=== PATIENT | male | born 1970 | race American Indian/Alaskan Native ===

== ENCOUNTER 2017-06-06 18:00 | Inpatient (IN) | payer BC, OTHER ==
[2017-06-06] MEDS ORDERED: NACL 0.9% 1000 ML 1,000 ML IV ONE (18:31)
[2017-06-06] MEDS ORDERED: BABY ASPIRIN PO ONE (18:31)
[2017-06-06] MEDS ORDERED: PLAVIX PO ONE (18:31)
[2017-06-06] MEDS ORDERED: MORPHINE IV ONE (18:32)
--- NOTE | 2017-06-06 18:35 | Emergency Department Report ---
ED Chest Pain HPI - General Chief Complaint: Chest Pain Stated Complaint: CHEST PAIN Time Seen by Provider: 06/06/17 18:30 Source: patient Mode of arrival: Ambulatory Limitations: No Limitations - History of Present Illness Initial Comments: She has a 46-year-old male past history of TIA, hypertension and von hippel lindau. Presents with chest pain. Chest pain has been going on since yesterday but it has gotten progressively more severe. Patient states the chest pain is located left side of his chest since a 10 out of 10 is an achy type of pain it's a pressure pain that radiates throughout his chest. Patient states that he's never had chest hematocrit is 44. Patient states that he slightly short of breath and nauseous. Patient was just resting when this pain occurred. - Related Data Home Medications Medication Instructions Recorded Confirmed Last Taken Lisinopril [Zestril TAB] 40 mg PO QDAY 06/01/14 06/01/14 Unknown metFORMIN [Glucophage] 500 mg PO BID 06/01/14 06/01/14 Unknown Previous Rx's Medication Instructions Recorded Last Taken Type levETIRAcetam [Keppra TAB] 500 mg PO BID #60 tablet 06/02/14 Unknown Rx Allergies Allergy/AdvReac Type Severity Reaction Status Date / Time No Known Allergies Allergy Verified 06/01/14 05:13 Heart Score - HEART Score History: Highly suspicious EKG: Significant ST-depression Age: < 45 Risk factors: > 3 risk factors or hx of atherosclerotic disease Troponin: 1-3x normal limit HEART Score: 7 ED Review of Systems ROS: Stated complaint: CHEST PAIN Other details as noted in HPI Constitutional: denies: chills, fever Eyes: denies: eye pain, eye discharge, vision change ENT: denies: ear pain, throat pain Respiratory: SOB at rest. denies: cough, shortness of breath, wheezing Cardiovascular: chest pain. denies: palpitations Endocrine: no symptoms reported Gastrointestinal: denies: abdominal pain, nausea, diarrhea Genitourinary: denies: urgency, dysuria Musculoskeletal: denies: back pain, joint swelling, arthralgia Skin: denies: rash, lesions Neurological: denies: headache, weakness, paresthesias Psychiatric: denies: anxiety, depression Hematological/Lymphatic: denies: easy bleeding, easy bruising ED Past Medical Hx - Past Medical History Hx Hypertension: Yes Hx Congestive Heart Failure: No Hx Diabetes: Yes Hx Seizures: Yes Hx Asthma: No Hx COPD: No Hx HIV: No Additional medical history: Hx TIA. VON HIPPEL-LINDAU DISEASE (cerebral hemangiomas) - Surgical History Past Surgical History?: No - Social History Smoking Status: Never Smoker Substance Use Type: None - Medications Home Medications: Home Medications Medication Instructions Recorded Confirmed Last Taken Type Lisinopril [Zestril TAB] 40 mg PO QDAY 06/01/14 06/01/14 Unknown History metFORMIN [Glucophage] 500 mg PO BID 06/01/14 06/01/14 Unknown History levETIRAcetam [Keppra TAB] 500 mg PO BID #60 tablet 06/02/14 Unknown Rx ED Physical Exam - General Limitations: No Limitations General appearance: alert, in no apparent distress - Head Head exam: Present: atraumatic, normocephalic - Eye Eye exam: Present: normal appearance - ENT ENT exam: Present: mucous membranes moist - Neck Neck exam: Present: normal inspection - Respiratory Respiratory exam: Present: normal lung sounds bilaterally. Absent: respiratory distress - Cardiovascular Cardiovascular Exam: Present: normal rhythm, tachycardia. Absent: systolic murmur, diastolic murmur, rubs, gallop - GI/Abdominal GI/Abdominal exam: Present: soft, normal bowel sounds - Rectal Rectal exam: Present: deferred - Extremities Exam Extremities exam: Present: normal inspection - Back Exam Back exam: Present: normal inspection - Neurological Exam Neurological exam: Present: alert, oriented X3 - Psychiatric Psychiatric exam: Present: normal affect, normal mood - Skin Skin exam: Present: warm, dry, intact, normal color. Absent: rash ED Course Vital Signs 06/06/17 06/06/17 06/06/17 18:23 18:30 18:44 Temperature 97 F L Pulse Rate 120 H Respiratory 24 18 Rate Blood Pressure 164/110 O2 Sat by Pulse 97 Oximetry - Consultations Consultation #1: 06/07/17 01:43 Consulted with director hospice operations Dr. Nix patient has EKG that's highly concerning for right sided STEMI. Patient will be sent to [facility] station [facility]. MARY score - Mary Score Age > 65: (0) No Aspirin use within the Past 7 Days: (0) No 3 or more CAD Risk Factors: (0) No 2 or more Angina events in past 24 hrs: (0) No Known CAD with more than 50% Stenosis: (0) No Elevated Cardiac Markers: (1) Yes ST Deviation Greater than 0.5mm: (1) Yes MARY Score: 2 ED Medical Decision Making - Lab Data Result diagrams: 06/06/17 18:32 06/06/17 18:32 Lab Results 06/06/17 06/06/17 06/06/17 Range/Units 18:32 18:32 18:32 WBC 12.7 H (4.5-11.0) K/mm3 RBC 5.88 H (3.65-5.03) M/mm3 Hgb 14.0 (11.8-15.2) gm/dl Hct 44.5 (35.5-45.6) % MCV 76 L (84-94) fl MCH 24 L (28-32) pg MCHC 31 L (32-34) % RDW 16.3 H (13.2-15.2) % Plt Count 259 (140-440) K/mm3 Lymph % (Auto) 12.2 L (13.4-35.0) % [place] % (Auto) 11.8 H (0.0-7.3) % Eos % (Auto) 0.3 (0.0-4.3) % Baso % (Auto) 0.6 (0.0-1.8) % Lymph # 1.5 (1.2-5.4) K/mm3 [place] # 1.5 H (0.0-0.8) K/mm3 Eos # 0.0 (0.0-0.4) K/mm3 Baso # 0.1 (0.0-0.1) K/mm3 Seg Neutrophils % 75.1 H (40.0-70.0) % Seg Neutrophils # 9.6 H (1.8-7.7) K/mm3 PT 15.6 H (12.2-14.9) Sec. INR 1.25 H (0.87-1.13) APTT 30.3 (24.2-36.6) Sec. Sodium 138 (137-145) mmol/L Potassium 3.5 L (3.6-5.0) mmol/L Chloride 95.4 L (98-107) mmol/L Carbon Dioxide 27 (22-30) mmol/L Anion Gap 19 mmol/L BUN 6 L (9-20) mg/dL Creatinine 0.6 L (0.8-1.5) mg/dL Estimated GFR > 60 ml/min BUN/Creatinine Ratio 10.00 % Glucose 227 H (75-100) mg/dL POC Glucose (70-105) Calcium 9.5 (8.4-10.2) mg/dL Total Creatine Kinase 768 H (55-170) units/L CK-MB (CK-2) 12.5 H (0.0-4.0) ng/mL CK-MB (CK-2) Rel Index 1.6 (0-4) Troponin T 1.760 H* (0.00-0.029) ng/mL Triglycerides 97 (2-149) mg/dL Cholesterol 233 H (50-199) mg/dL LDL Cholesterol Direct 139 H (50-130) mg/dL HDL Cholesterol 75 H (40-59) mg/dL Cholesterol/HDL Ratio 3.10 % Blood Type Antibody Screen 06/06/17 06/06/17 Range/Units 18:32 21:31 WBC (4.5-11.0) K/mm3 RBC (3.65-5.03) M/mm3 Hgb (11.8-15.2) gm/dl Hct (35.5-45.6) % MCV (84-94) fl MCH (28-32) pg MCHC (32-34) % RDW (13.2-15.2) % Plt Count (140-440) K/mm3 Lymph % (Auto) (13.4-35.0) % [place] % (Auto) (0.0-7.3) % Eos % (Auto) (0.0-4.3) % Baso % (Auto) (0.0-1.8) % Lymph # (1.2-5.4) K/mm3 [place] # (0.0-0.8) K/mm3 Eos # (0.0-0.4) K/mm3 Baso # (0.0-0.1) K/mm3 Seg Neutrophils % (40.0-70.0) % Seg Neutrophils # (1.8-7.7) K/mm3 PT (12.2-14.9) Sec. INR (0.87-1.13) APTT (24.2-36.6) Sec. Sodium (137-145) mmol/L Potassium (3.6-5.0) mmol/L Chloride (98-107) mmol/L Carbon Dioxide (22-30) mmol/L Anion Gap mmol/L BUN (9-20) mg/dL Creatinine (0.8-1.5) mg/dL Estimated GFR ml/min BUN/Creatinine Ratio % Glucose (75-100) mg/dL POC Glucose 254 H (70-105) Calcium (8.4-10.2) mg/dL Total Creatine Kinase (55-170) units/L CK-MB (CK-2) (0.0-4.0) ng/mL CK-MB (CK-2) Rel Index (0-4) Troponin T (0.00-0.029) ng/mL Triglycerides (2-149) mg/dL Cholesterol (50-199) mg/dL LDL Cholesterol Direct (50-130) mg/dL HDL Cholesterol (40-59) mg/dL Cholesterol/HDL Ratio % Blood Type B POSITIVE Antibody Screen Negative - EKG Data -: EKG Interpreted by Pa - EKG Data 06/07/17 01:38 EKG shows sinus tachycardia normal axis. ST segment elevations in aVR and in leads 2,3 and V5 and V6. Consistent with right coronary STEMI. - Medical Decision Making Medical diagnosis: STEMI Differential diagnosis non-STEMI, unstable angina, costochondritis CBC, CMP, troponin, EKG, aspirin, Plavix, IV heparin and an original cardiology consult Patient has a right-sided STEMI based on EKG I will talk to control clerk auditing Dr. Nix and he agrees to take the patient to the [facility]. Discussed plan with the patient he agrees to go to the filling station lab[facility]. Patient has received aspirin and Plavix. Critical Care Time: Yes Critical care time in (mins) excluding proc time.: 25 Critical care attestation.: If time is entered above; I have spent that time in minutes in the direct care of this critically ill patient, excluding procedure time. Critical care time spent with consulted 5 minutes Critical care time spent at patient's bedside 15 minutes Critical care time spent reviewing old records 5 minutes ED Disposition Clinical Impression: STEMI (ST elevation myocardial infarction) Qualifiers: Involved coronary artery: right coronary artery Qualified Code(s): I21.11 - ST elevation (STEMI) myocardial infarction involving right coronary artery Chest pain due to myocardial ischemia Qualifiers: Ischemic chest pain type: unstable angina pectoris Qualified Code(s): I20.0 - Unstable angina Disposition: DC-09 OP ADMIT IP TO THIS HOSP Is pt being admited?: Yes Does the pt Need Aspirin: Yes Condition: Stable
[2017-06-06] MEDS ORDERED: HEPARIN 10,000 UNITS/10 ML ONE ×2 (18:41→18:46)
[2017-06-06] MEDS: HEPARIN 10,000 UNITS/10 ML IV ONE (18:42)
[2017-06-06] MEDS ORDERED: HEPARIN/NS 5000 UNIT/500ML(CATH LAB) 1,000 ML IR ONE (18:45)
[2017-06-06] MEDS ORDERED: XYLOCAINE 2% INFILTRATI ONE (18:46)
[2017-06-06] MEDS ORDERED: CALAN ONE (18:46)
[2017-06-06] MEDS ORDERED: NITROGLYCERIN SYRINGE 3 ML ONE ×2 (18:46→19:45)
[2017-06-06] MEDS ORDERED: HEPARIN/ 0.45% NACL-25,000 UNIT/500 ML 25,000 UNIT/500 ML BAG IV SCH (19:00)
[2017-06-06 19:02] LABS: Basophils % (Auto) 0.6 % (0.0-1.8); Eosinophils % (Auto) 0.3 % (0.0-4.3); Hematocrit 44.5 % (35.5-45.6); Mean Corpuscular HGB Conc 31 % (32-34); Mean Corpuscular Volume 76 fl (84-94); Platelet Count 259 K/mm3 (140-440); Red Blood Count 5.88 M/mm3 (3.65-5.03); Red Cell Distribution Width 16.3 % (13.2-15.2); White Blood Count 12.7 K/mm3 (4.5-11.0)
[2017-06-06 19:04] LABS: Mean Corpuscular Hemoglobin 24 pg (28-32)
[2017-06-06 19:12] LABS: INR 1.25 (0.87-1.13); Partial Thromboplastin Time 30.3 Sec. (24.2-36.6)
[2017-06-06 19:23] LABS: Creatine Kinase MB 12.5 ng/mL (0.0-4.0)
[2017-06-06 19:24] LABS: Anion Gap 19 mmol/L; Blood Urea Nitrogen 6 mg/dL (9-20); Calcium 9.5 mg/dL (8.4-10.2); Carbon Dioxide 27 mmol/L (22-30); Chloride 95.4 mmol/L (98-107); Creatine Kinase 768 units/L (55-170); Glucose 227 mg/dL (75-100); Potassium 3.5 mmol/L (3.6-5.0); Sodium 138 mmol/L (137-145)
[2017-06-06] MEDS ORDERED: VERSED ONE (19:24)
[2017-06-06] MEDS ORDERED: SUBLIMAZE ONE (19:24)
[2017-06-06] MEDS ORDERED: TRIDIL DRIP 50MG/250ML 50 MG/250 ML BOTTLE ONE (19:29)
[2017-06-06 19:43] LABS: Cholesterol 233 mg/dL (50-199); HDL Cholesterol 75 mg/dL (40-59); LDL Cholesterol,Direct 139 mg/dL (50-130); Triglycerides 97 mg/dL (2-149)
[2017-06-06] MEDS ORDERED: PLAVIX ONE (19:50)
[2017-06-06] MEDS ORDERED: ALUM-MAG HYDROX-SIMETH 200-200-20MG/5ML ONE (19:50)
--- NOTE | 2017-06-06 20:27 | Consultation ---
History of Present Illness Consult date: 06/06/17 Consult reason: chest pain History of present illness: 46y M who is admitted with chest pain and ECG consistent with acute inferior STEMI. Emergency cardiac cath performed, 100% occlusion of the RCA treated with BM stent, excellent result, MARY 3 flow restored. Baremetal stents selected due to history of cerebral hemangioma and patient's admitted history of noncompliance with medical therapy. Co-morbidities: DM, HTN and poorly documented history of intracranial hemangioma and seizures. Past History Past Medical History: diabetes, hypertension Medications and Allergies Allergies Allergy/AdvReac Type Severity Reaction Status Date / Time No Known Allergies Allergy Verified 06/01/14 05:13 Home Medications Medication Instructions Recorded Confirmed Last Taken Type Lisinopril [Zestril TAB] 40 mg PO QDAY 06/01/14 06/01/14 Unknown History metFORMIN [Glucophage] 500 mg PO BID 06/01/14 06/01/14 Unknown History levETIRAcetam [Keppra TAB] 500 mg PO BID #60 tablet 06/02/14 Unknown Rx Active Meds: Active Medications Aspirin (Ecotrin) 81 mg PO QDAY [facility] Clopidogrel Bisulfate (Plavix) 75 mg PO QDAY [facility] Sodium Chloride (Nacl 0.9% 1000 Ml) 1,000 mls @ 42 mls/hr IV ONCE ONE Stop: 06/07/17 18:19 Last Admin: 06/06/17 18:42 Dose: 42 mls/hr Sodium Chloride (Nacl 0.9% 1000 Ml) 1,000 mls @ 100 mls/hr IV DIRECT KEITH Stop: 06/07/17 08:59 Losartan Potassium (Cozaar) 25 mg PO QDAY [facility] Metoprolol Tartrate (Lopressor) 50 mg PO BID [facility] Nitroglycerin (Nitro Dur) 0.4 mg TD DAILY@0600 [facility] Simvastatin (Zocor) 40 mg PO QHS [facility] Review of Systems Cardiovascular: chest pain, lightheadedness, shortness of breath, no orthopnea, no palpitations, no rapid/irregular heart beat, no edema, no syncope Physical Examination Vital Signs Temp Pulse BP Pulse Ox 97 F L 120 H 164/110 97 06/06/17 18:23 06/06/17 18:23 06/06/17 18:23 06/06/17 18:23 General appearance: no acute distress HEENT: Positive: PERRL Neck: Positive: neck supple Cardiac: Positive: Reg Rate and Rhythm Lungs: Positive: Decreased Breath Sounds Neuro: Positive: Grossly Intact Abdomen: Positive: Soft Male genitourinary: Positive: deferred Skin: Positive: Clear Extremities: Absent: edema Results 06/06/17 18:32 06/06/17 18:32 Cardiac Enzymes 06/06/17 Range/Units 18:32 CK-MB (CK-2) 12.5 H (0.0-4.0) ng/mL Coagulation 06/06/17 Range/Units 18:32 PT 15.6 H (12.2-14.9) Sec. INR 1.25 H (0.87-1.13) APTT 30.3 (24.2-36.6) Sec. Lipids 06/06/17 Range/Units 18:32 Triglycerides 97 (2-149) mg/dL Cholesterol 233 H (50-199) mg/dL HDL Cholesterol 75 H (40-59) mg/dL Cholesterol/HDL Ratio 3.10 % CBC 06/06/17 Range/Units 18:32 WBC 12.7 H (4.5-11.0) K/mm3 RBC 5.88 H (3.65-5.03) M/mm3 Hgb 14.0 (11.8-15.2) gm/dl Hct 44.5 (35.5-45.6) % Plt Count 259 (140-440) K/mm3 Lymph # 1.5 (1.2-5.4) K/mm3 [place] # 1.5 H (0.0-0.8) K/mm3 Eos # 0.0 (0.0-0.4) K/mm3 Baso # 0.1 (0.0-0.1) K/mm3 Comprehensive Metabolic Panel 06/06/17 Range/Units 18:32 Sodium 138 (137-145) mmol/L Potassium 3.5 L (3.6-5.0) mmol/L Chloride 95.4 L (98-107) mmol/L Carbon Dioxide 27 (22-30) mmol/L BUN 6 L (9-20) mg/dL Creatinine 0.6 L (0.8-1.5) mg/dL Glucose 227 H (75-100) mg/dL Calcium 9.5 (8.4-10.2) mg/dL EKG interpretations - Telemetry EKG Rhythm: Sinus Tachycardia (acute inferior STEMI) Assessment and Plan - Patient Problems (1) STEMI (ST elevation myocardial infarction) Current Visit: Yes Status: Acute Qualifiers: Involved coronary artery: I Plan to address problem: Emergency cardiac cath performed, 100% occlusion of the RCA treated with BM stent, excellent result, MARY 3 flow restored. Baremetal stents selected due to history of cerebral hemangioma and patient's admitted history of noncompliance with medical therapy.
[2017-06-06] MEDS ORDERED: TYLENOL PO PRN (20:45)
[2017-06-06] MEDS ORDERED: MORPHINE IV PRN (20:45)
[2017-06-06] MEDS ORDERED: PERCOCET 5/325 PO PRN (20:45)
[2017-06-06] MEDS ORDERED: AMBIEN PO PRN (20:45)
[2017-06-06] MEDS ORDERED: ZOFRAN IV PRN (20:45)
[2017-06-06] MEDS ORDERED: MILK OF MAGNESIA PO PRN (20:45)
[2017-06-06] MEDS ORDERED: DULCOLAX PR PRN (20:45)
--- NOTE | 2017-06-06 20:57 | History and Physical Report ---
History of Present Illness Date of examination: 06/06/17 Date of admission: 06/06/17 Chief complaint: L sided Chest pain 1 day History of present illness: History of Present Illness 46-year-old male past history of TIA, hypertension Presents with chest pain. Chest pain has been going on since yesterday but it has gotten progressively more severe. Patient states the chest pain is located left side of his chest since a 10 out of 10 is an achy type of pain it's a pressure pain that radiates throughout his chest. Patient states that he's never had Chest discomfort before. Patient states that he is slightly short of breath and nauseous. Patient was just resting when this pain occur - Past Medical History Hx Hypertension: Yes Hx Diabetes: Yes Hx Seizures: YesAdditional medical history: Hx TIA. VON HIPPEL-LINDAU DISEASE ( cerebral hemangiomas) - Surgical History Past Surgical History?: No - Social History Smoking Status: Never Smoker Substance Use Type: None - Medications Home Medications: Home Medications Medication Instructions Recorded Confirmed Last Taken Type Lisinopril [Zestril TAB] 40 mg PO QDAY 06/01/14 06/01/14 Unknown History metFORMIN [Glucophage] 500 mg PO BID 06/01/14 06/01/14 Unknown History levETIRAcetam [Keppra TAB] 500 mg PO BID #60 tablet 06/02/14 Unknown Rx Review of Systems Stated complaint: CHEST PAIN Other details as noted in HPI Constitutional: denies: chills, fever Eyes: denies: eye pain, eye discharge, vision change ENT: denies: ear pain, throat pain Respiratory: SOB at rest. denies: cough, shortness of breath, wheezing Cardiovascular: chest pain. denies: palpitations Endocrine: no symptoms reported Gastrointestinal: denies: abdominal pain, nausea, diarrhea Genitourinary: denies: urgency, dysuria Musculoskeletal: denies: back pain, joint swelling, arthralgia Skin: denies: rash, lesions Neurological: denies: headache, weakness, paresthesias Psychiatric: denies: anxiety, depression Hematological/Lymphatic: denies: easy bleeding, easy bruising Past History Past Medical History: diabetes, hypertension Medications and Allergies Allergies Allergy/AdvReac Type Severity Reaction Status Date / Time No Known Allergies Allergy Verified 06/01/14 05:13 Home Medications Medication Instructions Recorded Confirmed Last Taken Type RX: Lisinopril [Zestril TAB] 40 mg PO QDAY 06/01/14 06/01/14 Unknown History RX: metFORMIN [Glucophage] 500 mg PO BID 06/01/14 06/01/14 Unknown History RX: levETIRAcetam [Keppra TAB] 500 mg PO BID #60 tablet 06/02/14 Unknown Rx Active Meds: Active Medications Aspirin (Baby Aspirin) 81 mg PO QDAY [facility] Clopidogrel Bisulfate (Plavix) 75 mg PO QDAY [facility] Sodium Chloride (Nacl 0.9% 1000 Ml) 1,000 mls @ 42 mls/hr IV ONCE ONE Stop: 06/07/17 18:19 Last Admin: 06/06/17 18:42 Dose: 42 mls/hr Sodium Chloride (Nacl 0.9% 1000 Ml) 1,000 mls @ 100 mls/hr IV DIRECT [facility] Stop: 06/07/17 08:59 Lisinopril (Zestril) 20 mg PO QDAY [facility] Metoprolol Tartrate (Lopressor) 50 mg PO BID [facility] Nitroglycerin (Nitro Dur) 0.4 mg TD DAILY@0600 [facility] Simvastatin (Zocor) 40 mg PO QHS [facility] Review of Systems All systems: negative Exam - Constitutional Vitals: Temp Pulse Resp BP Pulse Ox 97 F L 120 H 18 164/110 97 06/06/17 18:23 06/06/17 18:23 06/06/17 18:44 06/06/17 18:23 06/06/17 18:23 General appearance: Present: no acute distress, well-nourished - EENT Eyes: Present: PERRL ENT: hearing intact, clear oral mucosa - Neck Neck: Present: supple, normal ROM - Respiratory Respiratory effort: normal Respiratory: bilateral: CTA - Cardiovascular Heart Sounds: Present: S1 & S2. Absent: rub, click - Extremities Extremities: pulses symmetrical, No edema Peripheral Pulses: within normal limits - Abdominal General gastrointestinal: Present: soft, non-tender, non-distended, normal bowel sounds Male genitourinary: Present: normal - Integumentary Integumentary: Present: clear, warm, dry - Musculoskeletal Musculoskeletal: gait normal, strength equal bilaterally - Psychiatric Psychiatric: appropriate mood/affect, intact judgment & insight - Neurologic Neurologic: CNII-XII intact, moves all extremities Results - Labs CBC & Chem 7: 06/07/17 04:05 06/07/17 04:05 Labs: Laboratory Last Values WBC 12.7 K/mm3 (4.5-11.0) H 06/06/17 18:32 RBC 5.88 M/mm3 (3.65-5.03) H 06/06/17 18:32 Hgb 14.0 gm/dl (11.8-15.2) 06/06/17 18:32 Hct 44.5 % (35.5-45.6) 06/06/17 18:32 MCV 76 fl (84-94) L 06/06/17 18:32 MCH 24 pg (28-32) L 06/06/17 18: MCHC 31 % (32-34) L 06/06/17 18:32 RDW 16.3 % (13.2-15.2) H 06/06/17 18:32 Plt Count 259 K/mm3 (140-440) 06/06/17 18:32 Lymph % (Auto) 12.2 % (13.4-35.0) L 06/06/17 18:32 [place] % (Auto) 11.8 % (0.0-7.3) H 06/06/17 18:32 Eos % (Auto) 0.3 % (0.0-4.3) 06/06/17 18: Baso % (Auto) 0.6 % (0.0-1.8) 06/06/17 18:32 Lymph # 1.5 K/mm3 (1.2-5.4) 06/06/17 18:32 [place] # 1.5 K/mm3 (0.0-0.8) H 06/06/17 18:32 Eos # 0.0 K/mm3 (0.0-0.4) 06/06/17 18:32 Baso # 0.1 K/mm3 (0.0-0.1) 06/06/17 18:32 Seg Neutrophils % 75.1 % (40.0-70.0) H 06/06/17 18:32 Seg Neutrophils # 9.6 K/mm3 (1.8-7.7) H 06/06/17 18:32 PT 15.6 Sec. (12.2-14.9) H 06/06/17 18:32 INR 1.25 (0.87-1.13) H 06/06/17 18:32 APTT 30.3 Sec. (24.2-36.6) 06/06/17 18:32 Sodium 138 mmol/L (137-145) 06/06/17 18:32 Potassium 3.5 mmol/L (3.6-5.0) L 06/06/17 18:32 Chloride 95.4 mmol/L (98-107) L 06/06/17 18:32 Carbon Dioxide 27 mmol/L (22-30) 06/06/17 18:32 Anion Gap 19 mmol/L 06/06/17 18:32 BUN 6 mg/dL (9-20) L 06/06/17 18:32 Creatinine 0.6 mg/dL (0.8-1.5) L 06/06/17 18:32 Estimated GFR > 60 ml/min 06/06/17 18:32 BUN/Creatinine Ratio 10.00 % 06/06/17 18:32 Glucose 227 mg/dL (75-100) H 06/06/17 18:32 Calcium 9.5 mg/dL (8.4-10.2) 06/06/17 18:32 Total Creatine Kinase 768 units/L (55-170) H 06/06/17 18:32 CK-MB (CK-2) 12.5 ng/mL (0.0-4.0) H 06/06/17 18:32 CK-MB (CK-2) Rel Index 1.6 (0-4) 06/06/17 18:32 Troponin T 1.760 ng/mL (0.00-0.029) H* 06/06/17 18:32 Triglycerides 97 mg/dL (2-149) 06/06/17 18:32 Cholesterol 233 mg/dL (50-199) H 06/06/17 18:32 LDL Cholesterol Direct 139 mg/dL (50-130) H 06/06/17 18:32 HDL Cholesterol 75 mg/dL (40-59) H 06/06/17 18:32 Cholesterol/HDL Ratio 3.10 % 06/06/17 18:32 Blood Type B POSITIVE 06/06/17 18:32 Antibody Screen Negative 06/06/17 18:32 - Imaging and Cardiology EKG: report reviewed (St elevation in Anterior leads) Assessment and Plan Assessment and plan: The high probability of a clinically significant, sudden or life threatening deterioration of the [hematology, respiratory] system(s) required my full and direct attention, intervention and personal management. The aggregate critical care time was [35] minutes. This time is in addition to time spent performing reported procedures but includes the following: [x] Data Review and interpretation [x] Patient assessment and monitoring of vital signs [x] Documentation [x] Medication orders and management Advance Directives: Yes (Full code) VTE prophylaxis?: Chemical Plan of care discussed with patient/family: Yes - Patient Problems (1) STEMI (ST elevation myocardial infarction) Current Visit: Yes Status: Acute Qualifiers: Involved coronary artery: right coronary artery Qualified Code(s): I21.11 - ST elevation (STEMI) myocardial infarction involving right coronary artery Plan to address problem: Emergency cardiac cath performed, 100% occlusion of the RCA treated with BM stent, excellent result, MARY 3 flow restored. Baremetal stents selected due to history of cerebral hemangioma and patient's admitted history of noncompliance with medical therapy. (2) Dyslipidemia Current Visit: No Status: Chronic Plan to address problem: Cont Statins (3) Seizure Current Visit: No Status: Chronic Qualifiers: Convulsion type: unspecified Qualified Code(s): R56.9 - Unspecified convulsions Plan to address problem: Sec to Hemangiomas.Chavo Garcia (4) T2DM (type 2 diabetes mellitus) Current Visit: Yes Status: Chronic Qualifiers: Diabetes mellitus complication status: without complication Diabetes mellitus complication detail: D Diabetic retinopathy severity: D Proliferative retinopathy type: P Diabetes mellitus macular edema: D Diabetes mellitus intermediate manager insulin use: without intermediate manager use Laterality: L Chronic kidney disease stage: C Qualified Code(s): E11.9 - Type 2 diabetes mellitus without complications Plan to address problem: Cont Coverage and Hypoglycemics (5) HTN (hypertension) Current Visit: Yes Status: Chronic Qualifiers: Hypertension type: essential hypertension Qualified Code(s): I10 - Essential (primary) hypertension Plan to address problem: Cont Lisinopril (6) DVT prophylaxis Current Visit: Yes Status: Acute Plan to address problem: On Lovenox
[2017-06-06] MEDS ORDERED: ZESTRIL PO SCH (21:00)
[2017-06-06] MEDS ORDERED: NACL 0.9% 1000 ML 1,000 ML IV SCH (21:00)
[2017-06-06] MEDS ORDERED: GLUCOPHAGE PO SCH (22:00)
--- NOTE | 2017-06-06 22:45 | Cardiac Catherization Report ---
PROCEDURE: Cardiac catheterization and coronary angioplasty. REASON FOR PROCEDURE: The patient is a 46-year-old male who presented to the Emergency Room with chest pain, ECG consistent with an acute inferior wall ST elevation myocardial infarction. Emergency cardiac catheterization protocol was activated. DESCRIPTION OF PROCEDURE: The patient was prepped and draped in a sterile fashion under emergency protocol. The right femoral artery was entered using the Seldinger technique followed by placement of a 6-[place] sheath. A #4 left Stacy catheter was used for left coronary angiography. Following left coronary angiography, we used a #4 right Stacy guiding catheter for right coronary angiography. CORONARY ANGIOGRAPHY: The left main coronary artery was angiographically normal. The left anterior descending artery and its diagonal branches contained mild luminal irregularities. A large ramus intermedius artery contained mild luminal irregularities. The circumflex artery and its obtuse marginal branches contained diffuse mild atherosclerosis. The right coronary artery was dominant. This vessel contained an irregular 75% stenosis of its proximal segment. Following that, there was a long segment of subtotal occlusion of the mid right coronary artery, close to the acute margin. There was only very faint antegrade flow into the distal AV groove of right coronary. CORONARY ANGIOPLASTY: The mid right coronary artery occlusion was identified as the infarct-related lesion. A 0.014 inch Circus Hand 50 guidewire was successfully guided through the occluded vessel, and following wire placement, the lesion was predilated using a 2.5 mm balloon catheter. Predilatation, we established MARY 3 flow, but revealed a significant residual ulcerated lesion. We then deployed a 2.75 x 26 mm bare-metal stent, which cover the entire lesional segment of the mid vessel, with the stent extending to the acute margin. Following stenting, there was an excellent angiographic result at the primary site, zero residual stenosis and MARY 3 flow restored. We then turned our attention to the second lesion of the proximal vessel. As described, this was irregular, 75% stenosis. In the primary stenting maneuver, we deployed a 3.5 x 12 mm bare-metal stents to this secondary lesion, and inflating the stent to optimal pressures. This again resulted in excellent angiographic result and zero residual stenosis. The procedure was well tolerated by the patient and there were no complications. The catheters and the wires were removed, sheath removed, and hemostasis achieved using an Angio-Seal device. The patient was returned to the post-procedure unit in stable condition. CONCLUSION: 1. The patient presented with an acute inferior wall ST elevation myocardial infarction. 2. Emergency cardiac catheterization. 3. Complete occlusion of the mid right coronary artery is the infarct-related lesion. 4. Successful primary angioplasty and stenting of the mid right coronary artery with deployment of a 2.75 x 26 mm bare-metal stent. 5. Successful angioplasty and stenting of a secondary lesion of the proximal right coronary artery using a 3.5 x 12 mm bare-metal stent. 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 He will be admitted to the CCU for post ID and post intervention and management. An echocardiogram will be ordered for left ventricular function and valvular function assessment. JOB# [id number] BLAIR/CHANDNI GARCIA
[2017-06-06] MEDS: KEPPRA PO SCH (22:56)
[2017-06-06] MEDS: LOPRESSOR PO SCH (22:56)
[2017-06-06] MEDS: ZOCOR PO SCH (22:56)
[2017-06-06] MEDS: ZESTRIL PO SCH (22:56)
[2017-06-06] MEDS: NOVOLOG SUB-Q SCH (22:57)
[2017-06-07 04:27] LABS: Basophils % (Auto) 0.4 % (0.0-1.8); Hematocrit 38.5 % (35.5-45.6); Hemoglobin 12.3 gm/dl (11.8-15.2); Mean Corpuscular HGB Conc 32 % (32-34); Mean Corpuscular Volume 76 fl (84-94); Platelet Count 215 K/mm3 (140-440); Red Blood Count 5.04 M/mm3 (3.65-5.03); White Blood Count 11.4 K/mm3 (4.5-11.0)
[2017-06-07 04:28] LABS: Mean Corpuscular Hemoglobin 24 pg (28-32)
[2017-06-07 04:46] LABS: Creatine Kinase MB 9.6 ng/mL (0.0-4.0)
[2017-06-07 04:48] LABS: Anion Gap 17 mmol/L; Blood Urea Nitrogen 6 mg/dL (9-20); Calcium 8.3 mg/dL (8.4-10.2); Carbon Dioxide 23 mmol/L (22-30); Creatine Kinase 599 units/L (55-170); Glucose 216 mg/dL (75-100); Potassium 3.8 mmol/L (3.6-5.0); Sodium 134 mmol/L (137-145)
[2017-06-07] MEDS: LOVENOX SUB-Q SCH (09:42)
[2017-06-07] MEDS: PLAVIX PO SCH (09:42)
[2017-06-07] MEDS: LOPRESSOR PO SCH ×2 (09:42→21:10)
[2017-06-07] MEDS: ZESTRIL PO SCH (09:42)
[2017-06-07] MEDS: KEPPRA PO SCH ×2 (09:42→21:06)
[2017-06-07] MEDS: BABY ASPIRIN PO SCH (09:42)
--- NOTE | 2017-06-07 09:43 | XRay Report ---
AP CHEST: History: Post PCI AP view of the chest demonstrates a normal mediastinal and cardiac contour with clear lungs and normal bony and soft tissue structures. IMPRESSION: Normal AP chest.
--- NOTE | 2017-06-07 09:43 | XRay Report ---
AP CHEST: History: Chest pain. AP view of the chest demonstrates a normal mediastinal and cardiac contour with clear lungs and normal bony and soft tissue structures. IMPRESSION: Normal AP chest.
[2017-06-07] MEDS: NITRO DUR TD SCH ×2 (09:47→15:07)
[2017-06-07] MEDS: NOVOLOG SUB-Q SCH ×4 (09:47→21:07)
--- NOTE | 2017-06-07 09:47 | Consultation ---
History of Present Illness - Reason for Consult Consult date: 06/07/17 STEMI, post computer lab para professional ICU care Requesting physician: ALEIDA EDMARCO - History of Present Illness 46 y/o male admitted with STEMI. Taken to computer lab para professional and had bare metal stent placed to 100% occluded RCA. Currently chest pain free and asleep with family at bedside. 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 Past History Past Medical History: diabetes, hypertension, other (VHL) Medications and Allergies Allergies Allergy/AdvReac Type Severity Reaction Status Date / Time No Known Allergies Allergy Verified 06/01/14 05:13 Home Medications Medication Instructions Recorded Confirmed Last Taken Type Lisinopril [Zestril TAB] 40 mg PO QDAY 06/01/14 06/01/14 Unknown History metFORMIN [Glucophage] 500 mg PO BID 06/01/14 06/01/14 Unknown History levETIRAcetam [Keppra TAB] 500 mg PO BID #60 tablet 06/02/14 Unknown Rx Active Meds: Active Medications Acetaminophen (Tylenol) 650 mg PO Q4H PRN PRN Reason: Pain MILD(1-3)/Fever >100.5/LEVY Aspirin (Baby Aspirin) 81 mg PO QDAY [facility] Bisacodyl (Dulcolax) 10 mg NC QDAY PRN PRN Reason: Constipation unrelieved by MOM Clopidogrel Bisulfate (Plavix) 75 mg PO QDAY [facility] Enoxaparin Sodium (Lovenox) 40 mg SUB-Q QDAY [facility] Sodium Chloride (Nacl 0.9% 1000 Ml) 1,000 mls @ 42 mls/hr IV ONCE ONE Stop: 06/07/17 18:19 Last Admin: 06/06/17 18:42 Dose: 42 mls/hr Insulin Aspart (Novolog) 0 units SUB-Q ACHS [facility] PRN Reason: Protocol Last Admin: 06/06/17 22:57 Dose: 4 units Levetiracetam (Keppra) 500 mg PO BID [facility] Last Admin: 06/06/17 22:56 Dose: 500 mg Lisinopril (Zestril) 40 mg PO QDAY [facility] Last Admin: 06/06/17 22:56 Dose: 40 mg Magnesium Hydroxide (Milk Of Magnesia) 30 ml PO Q4H PRN PRN Reason: Constipation Metformin HCl (Glucophage) 500 mg PO BID [facility] Last Admin: 06/06/17 22:56 Dose: 500 mg Metoprolol Tartrate (Lopressor) 50 mg PO BID [facility] Last Admin: 06/06/17 22:56 Dose: 50 mg Morphine Sulfate (Morphine) 2 mg IV Q4H PRN PRN Reason: Pain, Moderate (4-6) Nitroglycerin (Nitro Dur) 0.4 mg TD DAILY@0600 [facility] Ondansetron HCl (Zofran) 4 mg IV Q8H PRN PRN Reason: N/V unrelieved by Reglan Oxycodone/Acetaminophen (Percocet 5/325) 1 tab PO Q6H PRN PRN Reason: Pain, Moderate (4-6) Simvastatin (Zocor) 40 mg PO QHS [facility] Last Admin: 06/06/17 22:56 Dose: 40 mg Zolpidem Tartrate (Ambien) 5 mg PO QHS PRN PRN Reason: Insomnia Review of Systems All systems: negative Exam - Constitutional Vitals: Temp Pulse Resp BP Pulse Ox 98.6 F 107 H 14 99/61 100 06/07/17 08:00 06/07/17 06:20 06/07/17 06:20 06/07/17 06:20 06/07/17 06:20 General appearance: Present: no acute distress (asleep) - EENT ENT: clear oral mucosa - Neck Neck: Present: supple, normal ROM - Respiratory Respiratory: bilateral: CTA - Cardiovascular Rhythm: regular Heart Sounds: Present: S1 & S2 - Extremities Extremities: no ischemia - Abdominal General gastrointestinal: Present: soft, non-tender, normal bowel sounds Results - Labs CBC & Chem 7: 06/07/17 04:05 06/07/17 04:05 Labs: Abnormal lab results 06/06/17 06/07/17 06/07/17 Range/Units 21:31 01:23 04:05 WBC 11.4 H (4.5-11.0) K/mm3 RBC 5.04 H (3.65-5.03) M/mm3 MCV 76 L (84-94) fl MCH 24 L (28-32) pg RDW 16.0 H (13.2-15.2) % Lymph % (Auto) 11.2 L (13.4-35.0) % [place] % (Auto) 13.2 H (0.0-7.3) % [place] # 1.5 H (0.0-0.8) K/mm3 Seg Neutrophils % 75.2 H (40.0-70.0) % Seg Neutrophils # 8.6 H (1.8-7.7) K/mm3 Sodium (137-145) mmol/L BUN (9-20) mg/dL Creatinine (0.8-1.5) mg/dL Glucose (75-100) mg/dL POC Glucose 254 H (70-105) Hemoglobin A1c (4-6) % Calcium (8.4-10.2) mg/dL Total Creatine Kinase 638 H (55-170) units/L CK-MB (CK-2) 11.0 H (0.0-4.0) ng/mL Troponin T 2.580 H* D (0.00-0.029) ng/mL 06/07/17 06/07/17 Range/Units 04:05 04:05 WBC (4.5-11.0) K/mm3 RBC (3.65-5.03) M/mm3 MCV (84-94) fl MCH (28-32) pg RDW (13.2-15.2) % Lymph % (Auto) (13.4-35.0) % [place] % (Auto) (0.0-7.3) % [place] # (0.0-0.8) K/mm3 Seg Neutrophils % (40.0-70.0) % Seg Neutrophils # (1.8-7.7) K/mm3 Sodium 134 L (137-145) mmol/L BUN 6 L (9-20) mg/dL Creatinine 0.5 L (0.8-1.5) mg/dL Glucose 216 H (75-100) mg/dL POC Glucose (70-105) Hemoglobin A1c 11.9 H (4-6) % Calcium 8.3 L (8.4-10.2) mg/dL Total Creatine Kinase 599 H (55-170) units/L CK-MB (CK-2) 9.6 H (0.0-4.0) ng/mL Troponin T 2.050 H* D (0.00-0.029) ng/mL - Imaging and Cardiology Chest x-ray: image reviewed (mild cardiomegaly but otherwise clear) Assessment and Plan 46 y/o male with STEMI, 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 Follow up cardiology recs 2. ASA, Statin, BB and OBI if applicable 3. Will continue to follow
[2017-06-07] MEDS ORDERED: COZAAR PO SCH (10:00)
--- NOTE | 2017-06-07 10:56 | Progress Note ---
Assessment and Plan Acute STEMI s/p PCI of the RCA using BM stent Hx of cerebral hemangioma Hx of Seizure disorder Continue medical therapy for coronary artery disease to include nitrates, beta blockers, statins, aspirin and plavix theapy. Echocardiogram for LVEF assessment. Stable for transfer to telemetry. Subjective Date of service: 06/07/17 Interval history: Patient is resting in bed comfortably. He denies chest pain. Objective Vital Signs Temp Pulse Pulse Resp BP Pulse Ox 06/07/17 09:42 107 H 103/70 06/07/17 08:00 98.6 F 06/07/17 06:20 107 H 14 99/61 100 06/07/17 06:10 107 H 24 99/61 99 06/07/17 06:00 107 H 16 106/71 100 06/07/17 05:50 106 H 14 106/71 100 06/07/17 05:40 105 H 21 106/71 100 06/07/17 05:30 106 H 14 106/71 100 06/07/17 05:20 107 H 18 111/75 100 06/07/17 05:10 106 H 22 111/75 100 06/07/17 05:00 105 H 0 L 115/77 100 06/07/17 04:50 105 H 18 115/77 100 06/07/17 04:40 105 H 15 115/77 100 06/07/17 04:30 105 H 27 H 106/73 100 06/07/17 04:20 106 H 18 106/73 100 06/07/17 04:10 104 H 25 H 106/73 99 06/07/17 04:00 105 H 107 H 14 106/73 99 06/07/17 03:50 106 H 14 105/73 99 06/07/17 03:40 101 H 22 105/73 100 06/07/17 03:37 100.5 F H 06/07/17 03:30 100 H 19 108/68 100 06/07/17 03:20 101 H 20 108/68 99 06/07/17 03:10 103 H 20 108/68 99 06/07/17 03:00 104 H 20 110/73 99 06/07/17 02:50 106 H 19 110/73 99 06/07/17 02:40 107 H 22 110/73 99 06/07/17 02:30 107 H 18 127/85 99 06/07/17 02:20 108 H 21 115/72 99 06/07/17 02:13 108 H 06/07/17 02:10 107 H 19 115/72 99 06/07/17 02:00 109 H 18 127/85 99 06/07/17 01:50 110 H 22 127/85 99 06/07/17 01:40 112 H 8 L 127/85 99 06/07/17 01:30 114 H 7 L 127/85 99 06/07/17 01:20 113 H 18 124/83 99 06/07/17 01:10 113 H 18 119/76 99 06/07/17 01:00 113 H 20 134/91 99 06/07/17 00:50 114 H 22 134/91 99 06/07/17 00:40 115 H 21 124/83 99 06/07/17 00:30 115 H 20 134/91 99 06/07/17 00:20 115 H 13 134/91 99 06/07/17 00:10 116 H 22 134/91 99 06/07/17 00:00 118 H 109 H 16 155/99 98 06/06/17 23:57 100.1 F H 06/06/17 23:52 126 H 12 155/99 98 06/06/17 23:50 121 H 13 155/99 98 06/06/17 23:40 123 H 20 155/99 98 06/06/17 23:30 125 H 18 138/93 97 06/06/17 23:25 98 06/06/17 23:20 117 H 24 138/93 98 06/06/17 23:10 116 H 18 138/93 98 06/06/17 23:00 122 H 16 143/94 95 06/06/17 22:50 118 H 20 143/94 94 06/06/17 22:40 118 H 18 145/92 94 06/06/17 22:30 119 H 22 144/92 94 06/06/17 22:20 115 H 20 144/92 94 06/06/17 22:10 117 H 26 H 144/93 94 06/06/17 22:00 118 H 22 139/91 94 06/06/17 21:50 114 H 17 139/91 95 06/06/17 21:40 115 H 17 136/91 95 06/06/17 21:30 115 H 16 145/96 94 06/06/17 21:20 114 H 14 145/96 94 06/06/17 21:16 145/96 93 06/06/17 21:00 99 - Physical Examination General: No Apparent Distress HEENT: Positive: PERRL Cardiac: Positive: Reg Rate and Rhythm Neuro: Positive: Grossly Intact Extremities: Absent: edema - Labs and Meds Cardiac Enzymes 06/07/17 06/07/17 Range/Units 01:23 04:05 CK-MB (CK-2) 11.0 H 9.6 H (0.0-4.0) ng/mL CBC 06/07/17 Range/Units 04:05 WBC 11.4 H (4.5-11.0) K/mm3 RBC 5.04 H (3.65-5.03) M/mm3 Hgb 12.3 (11.8-15.2) gm/dl Hct 38.5 D (35.5-45.6) % Plt Count 215 (140-440) K/mm3 Lymph # 1.3 (1.2-5.4) K/mm3 [place] # 1.5 H (0.0-0.8) K/mm3 Eos # 0.0 (0.0-0.4) K/mm3 Baso # 0.0 (0.0-0.1) K/mm3 Comprehensive Metabolic Panel 06/07/17 Range/Units 04:05 Sodium 134 L (137-145) mmol/L Potassium 3.8 (3.6-5.0) mmol/L Chloride 98.0 (98-107) mmol/L Carbon Dioxide 23 (22-30) mmol/L BUN 6 L (9-20) mg/dL Creatinine 0.5 L (0.8-1.5) mg/dL Glucose 216 H (75-100) mg/dL Calcium 8.3 L (8.4-10.2) mg/dL - Imaging and Cardiology EKG: report reviewed (St elevation in Anterior leads)
--- NOTE | 2017-06-07 12:11 | Progress Note ---
Assessment and Plan Assessment and plan: 46-year-old man with history of intracranial hemangioma, history of hypertension and history of TIA. Who presents with chest pain. Patient was found to have acute STEMI, he went on to have PCI of the right coronary artery with bare metal stents. He received nitroglycerin drip. His cardiac medications have been optimized. He was continued on the results of his chronic medications. Neurology is being consulted to see if double antiplatelet therapy is safe in a patient with a history of known intracranial (1) STEMI (ST elevation myocardial infarction) Current Visit: Yes Status: Acute Qualifiers: Involved coronary artery: right coronary artery Qualified Code(s): I21.11 - ST elevation (STEMI) myocardial infarction involving right coronary artery Plan to address problem: Emergency cardiac cath performed, 100% occlusion of the RCA treated with BM stent, excellent result, MARY 3 flow restored. Baremetal stents selected due to history of cerebral hemangioma and patient's admitted history of noncompliance with medical therapy. (2) Dyslipidemia Current Visit: No Status: Chronic Plan to address problem: Cont Statins (3) Seizure Current Visit: No Status: Chronic Qualifiers: Convulsion type: unspecified Qualified Code(s): R56.9 - Unspecified convulsions Plan to address problem: Sec to Hemangiomas.Chavo Garcia (4) T2DM (type 2 diabetes mellitus) Current Visit: Yes Status: Chronic Qualifiers: Diabetes mellitus complication status: without complication Diabetes mellitus complication detail: D Diabetic retinopathy severity: D Proliferative retinopathy type: P Diabetes mellitus macular edema: D Diabetes mellitus correction insulin use: without truck terminal manager use Laterality: L Chronic kidney disease stage: C Qualified Code(s): E11.9 - Type 2 diabetes mellitus without complications Plan to address problem: Cont Coverage and Hypoglycemics (5) HTN (hypertension) Current Visit: Yes Status: Chronic Qualifiers: Hypertension type: essential hypertension Qualified Code(s): I10 - Essential (primary) hypertension Plan to address problem: Cont Lisinopril (6) DVT prophylaxis Current Visit: Yes Status: Acute Plan to address problem: On Lovenox The high probability of a clinically significant, sudden or life threatening deterioration of the [CV] system(s) required my full and direct attention, intervention and personal management. The aggregate critical care time was [33 ] minutes. This time is in addition to time spent performing reported procedures but includes the following: [] Data Review and interpretation [] Patient assessment and monitoring of vital signs [] Documentation [] Medication orders and management History Interval history: Denies chest pain denies headache denies shortness of breath Hospitalist Physical - Physical exam Narrative exam: General.: Appears well, no distress, nontoxic HEENT: Moist mucous membranes, extraocular muscles intact, no lymphadenopathy Neck: supple Cardiac: S1-S2 heard Lungs: clear to auscultation bilaterally Abdomen: soft , nontender, nondistended, bowel sounds positive Extremities: no edema clubbing or cyanosis Skin: no rash or lesions Neurologic: no gross focal deficits Psych: appropriate behavior, appropriate mood, corporative, judgment intact - Constitutional Vitals: Temp Pulse Resp BP Pulse Ox 98.6 F 101 H 21 103/67 99 06/07/17 08:00 06/07/17 11:30 06/07/17 11:30 06/07/17 11:30 06/07/17 11:30 General appearance: Present: no acute distress (asleep) Results - Labs CBC & Chem 7: 06/07/17 04:05 06/07/17 04:05 Labs: Laboratory Last Values WBC 11.4 K/mm3 (4.5-11.0) H 06/07/17 04:05 RBC 5.04 M/mm3 (3.65-5.03) H 06/07/17 04:05 Hgb 12.3 gm/dl (11.8-15.2) 06/07/17 04:05 Hct 38.5 % (35.5-45.6) D 06/07/17 04:05 MCV 76 fl (84-94) L 06/07/17 04:05 MCH 24 pg (28-32) L 06/07/17 04:05 MCHC 32 % (32-34) 06/07/17 04:05 RDW 16.0 % (13.2-15.2) H 06/07/17 04:05 Plt Count 215 K/mm3 (140-440) 06/07/17 04:05 Lymph % (Auto) 11.2 % (13.4-35.0) L 06/07/17 04:05 [place] % (Auto) 13.2 % (0.0-7.3) H 06/07/17 04:05 Eos % (Auto) 0.0 % (0.0-4.3) 06/07/17 04:05 Baso % (Auto) 0.4 % (0.0-1.8) 06/07/17 04:05 Lymph # 1.3 K/mm3 (1.2-5.4) 06/07/17 04:05 [place] # 1.5 K/mm3 (0.0-0.8) H 06/07/17 04:05 Eos # 0.0 K/mm3 (0.0-0.4) 06/07/17 04:05 Baso # 0.0 K/mm3 (0.0-0.1) 06/07/17 04:05 Seg Neutrophils % 75.2 % (40.0-70.0) H 06/07/17 04:05 Seg Neutrophils # 8.6 K/mm3 (1.8-7.7) H 06/07/17 04:05 PT 15.6 Sec. (12.2-14.9) H 06/06/17 18:32 INR 1.25 (0.87-1.13) H 06/06/17 18:32 APTT 30.3 Sec. (24.2-36.6) 06/06/17 18:32 Activated Clotting Time 219 (74-137) H 06/06/17 19:52 Sodium 134 mmol/L (137-145) L 06/07/17 04:05 Potassium 3.8 mmol/L (3.6-5.0) 06/07/17 04:05 Chloride 98.0 mmol/L (98-107) 06/07/17 04:05 Carbon Dioxide 23 mmol/L (22-30) 06/07/17 04:05 Anion Gap 17 mmol/L 06/07/17 04:05 BUN 6 mg/dL (9-20) L 06/07/17 04:05 Creatinine 0.5 mg/dL (0.8-1.5) L 06/07/17 04:05 Estimated GFR > 60 ml/min 06/07/17 04:05 BUN/Creatinine Ratio 12.00 % 06/07/17 04:05 Glucose 216 mg/dL (75-100) H 06/07/17 04:05 POC Glucose 254 (70-105) H 06/06/17 21:31 Hemoglobin A1c 11.9 % (4-6) H 06/07/17 04:05 Calcium 8.3 mg/dL (8.4-10.2) L 06/07/17 04:05 Total Creatine Kinase 599 units/L (55-170) H 06/07/17 04:05 CK-MB (CK-2) 9.6 ng/mL (0.0-4.0) H 06/07/17 04:05 CK-MB (CK-2) Rel Index 1.6 (0-4) 06/07/17 04:05 Troponin T 2.050 ng/mL (0.00-0.029) H* D 06/07/17 04:05 Triglycerides 97 mg/dL (2-149) 06/06/17 18:32 Cholesterol 233 mg/dL (50-199) H 06/06/17 18:32 LDL Cholesterol Direct 139 mg/dL (50-130) H 06/06/17 18:32 HDL Cholesterol 75 mg/dL (40-59) H 06/06/17 18:32 Cholesterol/HDL Ratio 3.10 % 06/06/17 18:32 Blood Type B POSITIVE 06/06/17 18:32 Antibody Screen Negative 06/06/17 18:32
[2017-06-07] MEDS: HEPARIN 10,000 UNITS/10 ML IV ONE (15:06)
[2017-06-07] MEDS: ZOCOR PO SCH (21:06)
[2017-06-08] MEDS: NITRO DUR TD SCH (06:49)
--- NOTE | 2017-06-08 07:20 | XRay Report ---
Chest 2 views: Compared to 06/07/17. History: Fever. Findings: Normal cardiomediastinal silhouette. Trachea is midline. Linear density right hilar area and left lower lobe suggestive of discoid atelectasis or pneumonitis. Normal CP angles Impression: Linear density right hilum and left lower lobe suggestive of discoid atelectasis or pneumonitis.
[2017-06-08] MEDS: LOVENOX SUB-Q SCH (10:14)
[2017-06-08] MEDS: PLAVIX PO SCH (10:14)
[2017-06-08] MEDS: ZESTRIL PO SCH (10:15)
[2017-06-08] MEDS: BABY ASPIRIN PO SCH (10:16)
[2017-06-08] MEDS: LOPRESSOR PO SCH ×2 (10:16→21:13)
[2017-06-08] MEDS: NOVOLOG SUB-Q SCH ×3 (10:17→23:42)
[2017-06-08] MEDS: KEPPRA PO SCH ×2 (10:17→21:13)
--- NOTE | 2017-06-08 10:46 | Progress Note ---
Assessment and Plan Acute STEMI s/p PCI of the RCA using BM stent Hx of cerebral hemangioma Hx of Seizure disorder Diabetes mellitus Recommendations: Continue medical therapy for coronary artery disease to include afterload reduction, nitrates, beta blockers, statins, aspirin and plavix theapy. Recommended that he gets neurology input, for further recommendations on the use of dual oral antiplatelet therapy in the setting of his cerebral hemangioma. Stable cardiac kuo. Once discharged, follow up with [facility] as scheduled Jun.16. Subjective Date of service: 06/08/17 Interval history: Patient reports he is feeling better. He has no complaints. Objective Vital Signs Temp Pulse Resp BP BP Pulse Ox 06/08/17 10:16 106 H 06/08/17 10:15 106 H 06/08/17 06:00 106 H 06/08/17 05:11 98.2 F 100 H 20 109/70 97 06/07/17 23:55 98.5 F 19 89/54 06/07/17 21:10 94 H 112/71 06/07/17 20:54 97 06/07/17 19:50 100.6 F H 94 H 21 112/71 94 06/07/17 19:42 117 H 112/71 94 06/07/17 19:41 100.6 F H 21 118/75 06/07/17 19:40 100.9 F H 113 H 20 108/68 92 06/07/17 16:32 101.7 F H 109 H 20 112/78 93 06/07/17 14:30 102 H 20 107/71 99 06/07/17 14:20 102 H 21 100/68 99 06/07/17 14:10 101 H 14 100/68 99 06/07/17 14:00 101 H 19 97/65 98 06/07/17 13:50 100 H 30 H 97/65 98 06/07/17 13:40 102 H 24 97/65 99 06/07/17 13:30 101 H 19 97/65 98 06/07/17 13:20 104 H 14 101/73 96 06/07/17 13:10 100 H 31 H 101/73 99 06/07/17 13:00 103 H 27 H 101/73 99 06/07/17 12:50 101 H 24 99/69 99 06/07/17 12:40 100 H 25 H 99/69 99 06/07/17 12:30 101 H 22 99/69 99 06/07/17 12:20 101 H 20 100/68 97 06/07/17 12:10 103 H 14 100/68 99 06/07/17 12:00 100 F H 103 H 13 103/67 99 06/07/17 11:50 101 H 17 103/67 98 06/07/17 11:40 105 H 21 103/67 99 06/07/17 11:30 101 H 21 103/67 99 06/07/17 11:20 99 H 19 100/68 100 06/07/17 11:10 102 H 8 L 100/68 99 06/07/17 11:00 103 H 21 100/68 99 06/07/17 10:50 106 H 10 L 102/68 99 - Physical Examination General: No Apparent Distress HEENT: Positive: PERRL Cardiac: Positive: Reg Rate and Rhythm Neuro: Positive: Grossly Intact Extremities: Absent: edema - Imaging and Cardiology EKG: report reviewed (St elevation in Anterior leads)
[2017-06-08 11:36] LABS: Bilirubin,Urine NEG (Negative); Blood,Urine NEG (Negative); Ketones,Urine 80 mg/dL (Negative); Leukocyte Esterase,Urine NEG (Negative); Mucus,Urine FEW /HPF; Nitrite,Urine NEG (Negative); Urobilinogen,Urine < 2.0 mg/dL (<2.0)
--- NOTE | 2017-06-08 11:55 | Progress Note ---
Assessment and Plan Assessment and plan: 46-year-old man with history of intracranial hemangioma, history of hypertension and history of TIA. Who presents with chest pain. Patient was found to have acute STEMI, he went on to have PCI of the right coronary artery with bare metal stents. He received nitroglycerin drip. His cardiac medications have been optimized. He was continued on the results of his chronic medications. Neurology is being consulted to see if double antiplatelet therapy is safe in a patient with a history of known intracranial (1) STEMI (ST elevation myocardial infarction) Current Visit: Yes Status: Acute Qualifiers: Involved coronary artery: right coronary artery Qualified Code(s): I21.11 - ST elevation (STEMI) myocardial infarction involving right coronary artery Plan to address problem: Emergency cardiac cath performed, 100% occlusion of the RCA treated with BM stent, excellent result, MARY 3 flow restored. Baremetal stents selected due to history of cerebral hemangioma and patient's admitted history of noncompliance with medical therapy. (2) Dyslipidemia Current Visit: No Status: Chronic Plan to address problem: Cont Statins (3) Seizure Current Visit: No Status: Chronic Qualifiers: Convulsion type: unspecified Qualified Code(s): R56.9 - Unspecified convulsions Plan to address problem: Sec to Hemangiomas.Chavo Garcia (4) T2DM (type 2 diabetes mellitus) Current Visit: Yes Status: Chronic Qualifiers: Diabetes mellitus complication status: without complication Diabetes mellitus complication detail: D Diabetic retinopathy severity: D Proliferative retinopathy type: P Diabetes mellitus macular edema: D Diabetes mellitus jail insulin use: without manager long term care use Laterality: L Chronic kidney disease stage: C Qualified Code(s): E11.9 - Type 2 diabetes mellitus without complications Plan to address problem: Cont Coverage and Hypoglycemics (5) HTN (hypertension) Current Visit: Yes Status: Chronic Qualifiers: Hypertension type: essential hypertension Qualified Code(s): I10 - Essential (primary) hypertension Plan to address problem: Cont Lisinopril (6)Sepsis due to LLL PNA levaquin Non adherence with medications He was counseled on improve compliance DVT prophylaxis Current Visit: Yes Status: Acute Plan to address problem: On Lovenox History Interval history: Denies chest pain denies headache denies shortness of breath Hospitalist Physical - Physical exam Narrative exam: General.: Appears well, no distress, nontoxic HEENT: Moist mucous membranes, extraocular muscles intact, no lymphadenopathy Neck: supple Cardiac: S1-S2 heard Lungs: clear to auscultation bilaterally Abdomen: soft , nontender, nondistended, bowel sounds positive Extremities: no edema clubbing or cyanosis Skin: no rash or lesions Neurologic: no gross focal deficits Psych: appropriate behavior, appropriate mood, corporative, judgment intact - Constitutional Vitals: Temp Pulse Resp BP Pulse Ox 98.2 F 106 H 20 109/70 97 06/08/17 05:11 06/08/17 10:16 06/08/17 05:11 06/08/17 05:11 06/08/17 05:11 General appearance: Present: no acute distress (asleep) Results - Labs CBC & Chem 7: 06/07/17 04:05 06/07/17 04:05 Labs: Laboratory Last Values WBC 11.4 K/mm3 (4.5-11.0) H 06/07/17 04:05 RBC 5.04 M/mm3 (3.65-5.03) H 06/07/17 04:05 Hgb 12.3 gm/dl (11.8-15.2) 06/07/17 04:05 Hct 38.5 % (35.5-45.6) D 06/07/17 04:05 MCV 76 fl (84-94) L 06/07/17 04:05 MCH 24 pg (28-32) L 06/07/17 04:05 MCHC 32 % (32-34) 06/07/17 04:05 RDW 16.0 % (13.2-15.2) H 06/07/17 04:05 Plt Count 215 K/mm3 (140-440) 06/07/17 04:05 Lymph % (Auto) 11.2 % (13.4-35.0) L 06/07/17 04:05 [place] % (Auto) 13.2 % (0.0-7.3) H 06/07/17 04:05 Eos % (Auto) 0.0 % (0.0-4.3) 06/07/17 04:05 Baso % (Auto) 0.4 % (0.0-1.8) 06/07/17 04:05 Lymph # 1.3 K/mm3 (1.2-5.4) 06/07/17 04:05 [place] # 1.5 K/mm3 (0.0-0.8) H 06/07/17 04:05 Eos # 0.0 K/mm3 (0.0-0.4) 06/07/17 04:05 Baso # 0.0 K/mm3 (0.0-0.1) 06/07/17 04:05 Seg Neutrophils % 75.2 % (40.0-70.0) H 06/07/17 04:05 Seg Neutrophils # 8.6 K/mm3 (1.8-7.7) H 06/07/17 04:05 PT 15.6 Sec. (12.2-14.9) H 06/06/17 18:32 INR 1.25 (0.87-1.13) H 06/06/17 18:32 APTT 30.3 Sec. (24.2-36.6) 06/06/17 18:32 Activated Clotting Time 219 (74-137) H 06/06/17 19:52 Sodium 134 mmol/L (137-145) L 06/07/17 04:05 Potassium 3.8 mmol/L (3.6-5.0) 06/07/17 04:05 Chloride 98.0 mmol/L (98-107) 06/07/17 04:05 Carbon Dioxide 23 mmol/L (22-30) 06/07/17 04:05 Anion Gap 17 mmol/L 06/07/17 04:05 BUN 6 mg/dL (9-20) L 06/07/17 04:05 Creatinine 0.5 mg/dL (0.8-1.5) L 06/07/17 04:05 Estimated GFR > 60 ml/min 06/07/17 04:05 BUN/Creatinine Ratio 12.00 % 06/07/17 04:05 Glucose 216 mg/dL (75-100) H 06/07/17 04:05 POC Glucose 247 (70-105) H 06/08/17 11:41 Hemoglobin A1c 11.9 % (4-6) H 06/07/17 04:05 Calcium 8.3 mg/dL (8.4-10.2) L 06/07/17 04:05 Total Creatine Kinase 599 units/L (55-170) H 06/07/17 04:05 CK-MB (CK-2) 9.6 ng/mL (0.0-4.0) H 06/07/17 04:05 CK-MB (CK-2) Rel Index 1.6 (0-4) 06/07/17 04:05 Troponin T 2.050 ng/mL (0.00-0.029) H* D 06/07/17 04:05 Triglycerides 97 mg/dL (2-149) 06/06/17 18:32 Cholesterol 233 mg/dL (50-199) H 06/06/17 18:32 LDL Cholesterol Direct 139 mg/dL (50-130) H 06/06/17 18:32 HDL Cholesterol 75 mg/dL (40-59) H 06/06/17 18:32 Cholesterol/HDL Ratio 3.10 % 06/06/17 18:32 Urine Color Yellow (Yellow) 06/08/17 11:20 Urine Turbidity Clear (Clear) 06/08/17 11:20 Urine pH 5.0 (5.0-7.0) 06/08/17 11:20 Ur Specific [place] 1.020 (1.003-1.030) 06/08/17 11:20 Urine Protein 30 mg/dl mg/dL (Negative) 06/08/17 11:20 Urine Glucose (UA) 150 mg/dL (Negative) 06/08/17 11:20 Urine Ketones 80 mg/dL (Negative) 06/08/17 11:20 Urine Blood Neg (Negative) 06/08/17 11:20 Urine Nitrite Neg (Negative) 06/08/17 11:20 Urine Bilirubin Neg (Negative) 06/08/17 11:20 Urine Urobilinogen < 2.0 mg/dL (<2.0) 06/08/17 11:20 Ur Leukocyte Esterase Neg (Negative) 06/08/17 11:20 Urine WBC (Auto) 2.0 /HPF (0.0-6.0) 06/08/17 11:20 Urine RBC (Auto) 2.0 /HPF (0.0-6.0) 06/08/17 11:20 U Epithel Cells (Auto) < 1.0 /HPF (0-13.0) 06/08/17 11:20 Urine Mucus Few /HPF 06/08/17 11:20 Blood Type B POSITIVE 06/06/17 18:32 Antibody Screen Negative 06/06/17 18:32
--- NOTE | 2017-06-08 12:46 | Progress Note ---
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 STable pulm status 2. Will sign off. Call if questions. Subjective Date of service: 06/08/17 Interval history: Successful transition out of ICU. No respiratory complaints or issues Objective - Constitutional Vitals: Vital Signs - 12hr 06/08/17 06/08/17 06/08/17 05:11 06:00 10:00 Temperature 98.2 F Pulse Rate 100 H 106 H 109 H Respiratory 20 Rate Blood Pressure 109/70 O2 Sat by Pulse 97 Oximetry 06/08/17 06/08/17 10:15 10:16 Temperature Pulse Rate 106 H 106 H Respiratory Rate Blood Pressure O2 Sat by Pulse Oximetry - Labs CBC & Chem 7: 06/07/17 04:05 06/07/17 04:05 Labs: Abnormal lab results 06/07/17 06/07/17 06/07/17 Range/Units 08:12 11:47 16:41 POC Glucose 226 H 264 H 208 H (70-105) 06/07/17 06/07/17 06/08/17 Range/Units 17:37 20:33 07:51 POC Glucose 231 H 240 H 192 H (70-105) 06/08/17 Range/Units 11:41 POC Glucose 247 H (70-105)
[2017-06-08] MEDS: LEVAQUIN PO SCH (14:42)
[2017-06-08] MEDS: ZOCOR PO SCH (21:13)
[2017-06-09] MEDS: NOVOLOG SUB-Q SCH ×2 (00:12→08:24)
[2017-06-09] MEDS: NITRO DUR TD SCH (05:20)
[2017-06-09] MEDS ORDERED: GLUCOPHAGE PO SCH (08:00)
[2017-06-09] MEDS: LOVENOX SUB-Q SCH (11:37)
[2017-06-09] MEDS: LOPRESSOR PO SCH (11:38)
[2017-06-09] MEDS: PLAVIX PO SCH (11:38)
[2017-06-09] MEDS: KEPPRA PO SCH (11:39)
[2017-06-09] MEDS: ZESTRIL PO SCH (11:39)
[2017-06-09] MEDS: BABY ASPIRIN PO SCH (11:39)
[2017-06-09 11:40] VITALS: BP 148/97
--- NOTE | 2017-06-09 13:00 | Consultation ---
History of Present Illness - Reason for Consult Consult date: 06/09/17 stroke - History of Present Illness I have reviewed the entire record of the patient and gone over his past hx of mini strokes and seizures recently had MS and question is can he safely go onto double platelet agents given the hx of hemangioma exam is unremarkable at this time and my opinion is double anti platelet agents are acceptable as benefit outweighs the risk thanks Past History Past Medical History: diabetes, hypertension, other (VHL) Medications and Allergies Allergies Allergy/AdvReac Type Severity Reaction Status Date / Time No Known Allergies Allergy Verified 06/01/14 05:13 Home Medications Medication Instructions Recorded Confirmed Last Taken Type Aspirin EC [Aspirin Enteric Coated 81 mg PO QDAY #30 tablet. 06/09/17 Unknown Rx TAB] Clopidogrel [Plavix] 75 mg PO QDAY #30 tablet 06/09/17 Unknown Rx Levofloxacin [Levaquin TAB] 750 mg PO Q24H #5 tablet 06/09/17 Unknown Rx Lisinopril [Zestril TAB] 40 mg PO QDAY #30 tablet 06/09/17 Unknown Rx Metoprolol [Lopressor TAB] 50 mg PO BID 30 Days 06/09/17 Unknown Rx Nitroglycerin [place] [Nitromist] 1 spray TL Q5M PRN #1 bottle 06/09/17 Unknown Rx Simvastatin [Zocor TAB] 40 mg PO QHS #30 tablet 06/09/17 Unknown Rx levETIRAcetam [Keppra TAB] 500 mg PO BID #60 tablet 06/09/17 Unknown Rx metFORMIN [Glucophage] 500 mg PO BID 30 Days 06/09/17 Unknown Rx oxyCODONE /ACETAMINOPHEN [Percocet 1 tab PO Q6H PRN #14 tablet 06/09/17 Unknown Rx 5/325 mg] Active Meds: Active Medications Acetaminophen (Tylenol) 650 mg PO Q4H PRN PRN Reason: Pain MILD(1-3)/Fever >100.5/LEVY Last Admin: 06/07/17 21:06 Dose: 650 mg Aspirin (Baby Aspirin) 81 mg PO QDAY [facility] Last Admin: 06/09/17 11:39 Dose: 81 mg Bisacodyl (Dulcolax) 10 mg RI QDAY PRN PRN Reason: Constipation unrelieved by MOM Clopidogrel Bisulfate (Plavix) 75 mg PO QDAY [facility] Last Admin: 06/09/17 11:38 Dose: 75 mg Enoxaparin Sodium (Lovenox) 40 mg SUB-Q QDAY [facility] Last Admin: 06/09/17 11:37 Dose: 40 mg Insulin Aspart (Novolog) 0 units SUB-Q ACHS [facility] PRN Reason: Protocol Last Admin: 06/09/17 08:24 Dose: 3 units Levetiracetam (Keppra) 500 mg PO BID [facility] Last Admin: 06/09/17 11:39 Dose: 500 mg Levofloxacin (Levaquin) 750 mg PO Q24H [facility] Last Admin: 06/08/17 14:42 Dose: 750 mg Lisinopril (Zestril) 20 mg PO QDAY [facility] Last Admin: 06/09/17 11:39 Dose: 20 mg Magnesium Hydroxide (Milk Of Magnesia) 30 ml PO Q4H PRN PRN Reason: Constipation Metformin HCl (Glucophage) 500 mg PO BIDDIAB [facility] Last Admin: 06/09/17 08:24 Dose: 500 mg Metoprolol Tartrate (Lopressor) 50 mg PO BID [facility] Last Admin: 06/09/17 11:38 Dose: 50 mg Morphine Sulfate (Morphine) 2 mg IV Q4H PRN PRN Reason: Pain, Moderate (4-6) Nitroglycerin (Nitro Dur) 0.4 mg TD DAILY@0600 [facility] Last Admin: 06/09/17 05:20 Dose: 0.4 mg Ondansetron HCl (Zofran) 4 mg IV Q8H PRN PRN Reason: N/V unrelieved by Reglan Oxycodone/Acetaminophen (Percocet 5/325) 1 tab PO Q6H PRN PRN Reason: Pain, Moderate (4-6) Simvastatin (Zocor) 40 mg PO QHS [facility] Last Admin: 06/08/17 21:13 Dose: 40 mg Zolpidem Tartrate (Ambien) 5 mg PO QHS PRN PRN Reason: Insomnia Exam - Constitutional Vitals: Temp Pulse Resp BP Pulse Ox 99.0 F 108 H 22 148/97 97 06/09/17 04:35 06/09/17 11:38 06/09/17 04:35 06/09/17 11:39 06/09/17 04:35 Results - Labs CBC & Chem 7: 06/07/17 04:05 06/07/17 04:05 Labs: Abnormal lab results 06/08/17 06/08/17 Range/Units 17:40 21:30 POC Glucose 299 H 215 H (70-105)
--- NOTE | 2017-06-09 13:09 | Progress Note ---
Assessment and Plan Acute STEMI s/p PCI of the RCA using BM stent Hx of cerebral hemangioma Hx of Seizure disorder Diabetes mellitus Recommendations: Ok per Neurology to continue the use of dual oral antiplatelet therapy in the setting of his cerebral hemangioma. Continue medical therapy for coronary artery disease to include afterload reduction, nitrates, beta blockers, statins, aspirin and plavix theapy. Stable cardiac kuo. Once discharged, follow up with [facility] as scheduled Jun.16. Subjective Date of service: 06/09/17 Interval history: Patient reports he is feeling better. He has no complaints. Objective Vital Signs Temp Pulse Resp BP BP Pulse Ox 06/09/17 11:39 148/97 06/09/17 11:38 108 H 148/97 06/09/17 04:35 99.0 F 113 H 22 125/80 97 06/09/17 00:45 99.1 F 100 H 20 136/94 94 06/08/17 21:13 114 H 06/08/17 20:47 98.6 F 114 H 18 111/72 94 06/08/17 16:30 98.4 F 104 H 123/60 - Physical Examination General: No Apparent Distress HEENT: Positive: PERRL Neck: Positive: neck supple Cardiac: Positive: Reg Rate and Rhythm Neuro: Positive: Grossly Intact Extremities: Absent: edema - Imaging and Cardiology EKG: report reviewed (St elevation in Anterior leads)
[2017-06-09] MEDS: LEVAQUIN PO SCH (14:19)
--- NOTE | 2017-06-09 19:06 | Discharge Summary ---
Providers - Providers Date of Admission: 06/06/17 20:45 Attending physician: JULIANE NGUYEN MD 06/08/17 11:52 Consult to Physician [CONS] Routine Consulting Provider: APARNA FAGAN Reason For Exam: Is dual antiplatelet ok given cerebral hemangioma? Place consult to:: neuro Notified:: office Was contact made?: Yes Time called:: 12:39 Primary care physician: NEWS AGENT Hospitalization Condition: Stable Hospital course: 46-year-old man with history of intracranial hemangioma, history of hypertension and history of TIA. Who presents with chest pain. Patient was found to have acute STEMI, he went on to have PCI of the right coronary artery with bare metal stents. He received nitroglycerin drip. His cardiac medications have been optimized. He was continued on the results of his chronic medications. Neurology is being consulted to see if double antiplatelet therapy is safe in a patient with a history of known intracranial hemangioma. I personally discussed the case with Dr. Fagan, and he agreed that double antiplatelet therapy is not contraindicated in this patient. He spiked a fever and therefore had infectious workup which revealed pneumonia for which he was treated with antibiotics and he'll complete his antibiotic course at home. He was counseled on improve compliance of medical adherence given multiple medical problems history of TIA and now history of acute STEMI. He verbalized understanding and promises to do better in the future Discharge diagnoses STEMI Hyperlipidemia Seizure disorder Type 2 diabetes Hypertension Sepsis secondary to pneumonia Nonadherence to medications Intracranial hemangiomas Disposition: DC-01 TO HOME OR SELFCARE Time spent for discharge: 33 minutes Core Measure Documentation - Palliative Care Palliative Care/ Comfort Measures: Not Applicable - Core Measures Any of the following diagnoses?: acute NE - Acute NE Discharge Requirements Aspirin at discharge: Yes OBI/ARB for LVSD if EF <40%: Yes Beta mariam at discharge: Yes Statin for LDL = or >100 mg/dl on DC: Yes Exam - Constitutional Vitals: Temp Pulse Resp BP Pulse Ox 99.0 F 108 H 22 148/97 98 06/09/17 04:35 06/09/17 11:38 06/09/17 04:35 06/09/17 11:39 06/09/17 09:00 General appearance: Present: no acute distress, well-nourished - EENT Eyes: Present: PERRL ENT: hearing intact, clear oral mucosa - Neck Neck: Present: supple, normal ROM - Respiratory Respiratory effort: normal Respiratory: bilateral: CTA - Cardiovascular Heart Sounds: Present: S1 & S2. Absent: rub, click - Extremities Extremities: pulses symmetrical, No edema Peripheral Pulses: within normal limits - Abdominal General gastrointestinal: Present: soft, non-tender, non-distended, normal bowel sounds Male genitourinary: Present: normal - Integumentary Integumentary: Present: clear, warm, dry - Musculoskeletal Musculoskeletal: gait normal, strength equal bilaterally - Psychiatric Psychiatric: appropriate mood/affect, intact judgment & insight - Neurologic Neurologic: CNII-XII intact, moves all extremities Plan Follow up with: ALEIDA DEMARCO MD [Staff Physician] - 7 Days PRIMARY CARE, [Primary Care Provider] - 7 Days APARNA FAGAN MD [Staff Physician] - 7 Days Forms: [facility] PCI D/C Instructions Prescriptions: Simvastatin [Zocor TAB] 40 mg PO QHS #30 tablet Aspirin EC [Aspirin Enteric Coated TAB] 81 mg PO QDAY #30 tablet. Clopidogrel [Plavix] 75 mg PO QDAY #30 tablet levETIRAcetam [Keppra TAB] 500 mg PO BID #60 tablet Levofloxacin [Levaquin TAB] 750 mg PO Q24H #5 tablet Lisinopril [Zestril TAB] 40 mg PO QDAY #30 tablet metFORMIN [Glucophage] 500 mg PO BID 30 Days Metoprolol [Lopressor TAB] 50 mg PO BID 30 Days Nitroglycerin [place] [Nitromist] 1 spray TL Q5M PRN #1 bottle PRN Reason: Angina oxyCODONE /ACETAMINOPHEN [Percocet 5/325 mg] 1 tab PO Q6H PRN #14 tablet PRN Reason: Pain, Moderate (4-6)
== END 2017-06-09 14:25 | disposition home or self-care (01) | DRG 853 ==
LOC: ED 18:00 → CATH 18:57 → CC1 20:45 → 4A 06-07 15:01
PROVIDERS: ADMIT Internal Medicine; ATTEND Internal Medicine
PROC: 02703EZ Dilation of Coronary Artery, One Artery with Two Intraluminal Devices, Percutaneous Approach (ICD-10-PCS; principal; 2017-06-06)
PROC: 4A023N7 Measurement of Cardiac Sampling and Pressure, Left Heart, Percutaneous Approach (ICD-10-PCS; 2017-06-06)
PROC: B2111ZZ Fluoroscopy of Multiple Coronary Arteries using Low Osmolar Contrast (ICD-10-PCS; 2017-06-06)
DX: A41.9 Sepsis, unspecified organism (principal); I21.3 ST elevation (STEMI) myocardial infarction of unspecified site; J18.9 Pneumonia, unspecified organism; Q85.8 Other phakomatoses, not elsewhere classified; E78.5 Hyperlipidemia, unspecified; I10 Essential (primary) hypertension; E11.9 Type 2 diabetes mellitus without complications; G40.909 Epilepsy, unspecified, not intractable, without status epilepticus; D18.02 Hemangioma of intracranial structures; Z79.899 Other long term (current) drug therapy; Z86.73 Personal history of transient ischemic attack (TIA), and cerebral infarction without residual deficits; Z91.14 Patient's other noncompliance with medication regimen
CPT/HCPCS: 36415; 71010; 71020; 80048; 80061; 81001; 82550; 82553; 82962; 83036; 84484; 85025; 85347; 85610; 85730; 86850; 86900; 86901; 87040; 92941; 93005; 93010; 93306; 93454; 94760; 96374; C1725; C1760; C1769; C1876; C1887; C1894; J1644; J1650; J1815; J2250; J2270; J3010; J7030; Q9967